=== PATIENT | female | born 1945 | race Caucasian/White ===

== ENCOUNTER 2021-08-27 18:40 | Emergency (ER) | payer MEDICARE, OTHER, SELFPAY ==
[2021-08-27 18:41] VITALS: BP 137/75; PULSE 90; RESP 22; TEMP 36.6; O2SAT 98; BMI 32.3
--- NOTE | 2021-08-27 19:08 | XR_ITS ---
PROCEDURE INFORMATION: Exam: XR Chest Exam date and time: 08/27/2021 7:08 PM Age: 76 years old Clinical indication: Patient HX: Cough, fever, quit smoking 2 years ago TECHNIQUE: Imaging protocol: XR of the chest. Views: 1 view. COMPARISON: No relevant prior studies available. FINDINGS: Lungs: Subtle interstitial haziness could reflect interstitial pneumonia. No consolidation. Pleural spaces: Unremarkable. No pleural effusion. No pneumothorax. Heart/Mediastinum: Unremarkable. No cardiomegaly. Bones/joints: Unremarkable. IMPRESSION: Subtle interstitial haziness could reflect interstitial pneumonia.
--- NOTE | 2021-08-27 19:23 | HMH.EDGENADL ---
ED Disposition Condition on Discharge: Good - Critical Care Critical Care Time: No <AmandaIshan - Last Filed: 08/27/21 19:43> <Clint Mckoy - Last Filed: 08/27/21 22:14> Clinical Impression: Bronchitis due to COVID-19 virus Disposition: Home, Self-Care Instructions: DI for COVID-19 (Suspected or Confirmed ) Additional Instructions: fluids and will arrange infusion Referrals: Libia Cabral [Primary Care Provider] - Attestation: On 08/27/21, the high probability of a clinically significant, sudden or life threatening deterioration of the following system(s) required my full and direct attention, intervention and personal management. The time I documented below is in addition to time spent performing reported procedures but includes the following listed in this critical care notation. Medical Decision Making - Medical Records Medical records reviewed: Yes: I reviewed the patient's medical records. - Bill Inquiry Pt receiving controlled substance: No - Reevaluation(s) Time: 19:43 <Ishan Patel - Last Filed: 08/27/21 19:43> - Lab Data Lab results reviewed: Yes: I reviewed the patient's lab results. Result diagrams: 08/27/21 19:39 08/27/21 19:39 - Radiology Data #1 Image(s): Chest Image Reviewed: Yes I have reviewed radiologist's interpretation Preliminary Findings: Abnormal <Clint Mckoy - Last Filed: 08/27/21 22:14> Vital Signs: 08/27/21 18:41 Temperature 98 F Temperature Source Oral Pulse Rate [Radial] 90 Respiratory Rate 22 Blood Pressure [Right Arm] 137/75 Blood Pressure Mean [Right Arm] 95 Blood Pressure Position [Right Arm] Sitting 02 Sat by Pulse Oximetry 98 Oxygen Delivery Method Room Air - Lab Data Lab Results 08/27/21 19:39: WBC 5.6, RBC 4.77, Hgb 13.4, Hct 42.0, MCV 88.1, MCH 28.1, MCHC 31.9, RDW 15.1, Plt Count 202, MPV 8.8, Neut % (Auto) 66.4, Lymph % (Auto) 26.8, [place] % (Auto) 4.8, Eos % (Auto) 1.2, Baso % (Auto) 0.8, Neut # (Auto) 3.7, Lymph # (Auto) 1.5, [place] # (Auto) 0.3, Eos # (Auto) 0.1, Baso # (Auto) 0.0 08/27/21 19:39: Sodium 137, Potassium 3.9, Chloride 107, Carbon Dioxide 23, Anion Gap 10.9, BUN 17, Creatinine 1.00, Estimated Creat Clear 70, Estimated GFR 54 L, Est GFR ( Amer) 65, Glucose 97, Calcium 8.9, Total Bilirubin 0.3, AST 32, ALT 24, Alkaline Phosphatase 48, Total Protein 7.3, Albumin 4.0, Globulin 3.3 H, Albumin/Globulin Ratio 1.2 08/27/21 20:35: SARS-CoV-2 (PCR) Detected A, Influenza A Untype (PCR) Not detected, Influenza Type B (PCR) Not detected Orders (Tests/Meds): ED MEDICATIONS Generic Name Dose Route Start Last Admin Trade Name Freq PRN Reason Stop Dose Admin Sodium Chloride 1,000 mls @ 999 mls/hr 08/27/21 19:15 08/27/21 19:43 Sod Chlor 0.9% 1000ml Bag IV 08/27/21 20:15 999 mls/hr .Q1H1M ALEXEY Administration Discontinued Medications Generic Name Dose Route Start Last Admin Trade Name Freq PRN Reason Stop Dose Admin Dexamethasone Sodium Phosphate 10 mg 08/27/21 19:08 08/27/21 19:43 Dexamethasone 4mg/Ml 5ml Mdv IV 08/27/21 19:09 10 mg ONCE ONE Administration - Reevaluation(s) Reevaluation #1: On reevaluation, patient remains in no respiratory distress. Nontoxic. No evidence of desaturation. Patient pending laboratory evaluation. Signed out to oncoming physician. (Ishan Patel) Medical Decision Narrative: 76-year-old female presenting with some cough and difficulty breathing. Patient symptoms are consistent with bronchitis secondary to Covid. Patient not having any hemodynamic instability. No hypoxia. No respiratory distress. Nontoxic. Work-up initiated. (Ishan Patel) General Adult HPI - General Mode of Arrival: Ambulatory Limitations: No Limitations Description of Symptoms (Recalled from ER Triage Doc. by RN): TO ED PER [facility]T CAR WITH C/O COUGH, SOB STATES TESTED + FOR COVID TODAY. SPOKE WITH PCP AND TOLD TO COME TO ED FOR EVAL. <Gilberto Patel
[2021-08-27 19:49] LABS: Basophils % 0.8 % (0.1-2.0); Eosinophils # 0.1 K/mm3 (0.0-0.4); Eosinophils % 1.2 % (0.1-12.0); Hemoglobin 13.4 g/dL (12.2-16.2); Lymphocytes # 1.5 K/mm3 (0.7-4.5); Lymphocytes % 26.8 % (10-50); Mean Corpuscular HGB Conc 31.9 g/dL (31.8-35.4); Mean Corpuscular Hemoglobin 28.1 pg (27.0-31.2); Mean Corpuscular Volume 88.1 fl (81-99); Mean Platelet Volume 8.8 fl (7.4-10.4); Monocytes # 0.3 K/mm3 (0.1-1.0); Monocytes % 4.8 % (1.7-9.3); Neutrophils # 3.7 K/mm3 (1.8-7.8); Neutrophils % 66.4 % (37.0-80.0); Platelet Count 202 K/mm3 (142-424); Red Blood Count 4.77 M/mm3 (4.20-5.40); Red Cell Distribution Width 15.1 % (11.5-17.5); White Blood Count 5.6 K/mm3 (4.8-10.8)
[2021-08-27 20:04] LABS: Chloride 107 mmol/L (98-107); Sodium 137 mmol/L (136-145)
[2021-08-27 20:05] LABS: Potassium 3.9 mmoL/L (3.5-5.1)
[2021-08-27 20:07] LABS: Alanine Aminotransferase 24 U/L (12-78); Alkaline Phosphatase 48 U/L (38-126); Aspartate Amino Transferase 32 U/L (14-36); Bilirubin,Total 0.3 mg/dl (0.2-1.3); Blood Urea Nitrogen 17 mg/dl (7-17); Creatinine Clearance Estimated 70 mL/min (50-200); Estimated Glomerular Filt Rate 54 ml/min (>60); GFR (African American) 65 ML/MIN (>60)
[2021-08-27 20:08] LABS: Albumin/Globulin Ratio 1.2 (1.1-1.8); Anion Gap 10.9 mEq/L (5-15); Calcium 8.9 mg/dl (8.4-10.2); Carbon Dioxide 23 mmol/L (22.0-30.0); Globulin 3.3 g/dL (1.3-3.2); Glucose 97 mg/dl (74-100); Total Protein,Serum 7.3 g/dl (6.3-8.2)
[2021-08-27 20:46] LABS: Influenza A, PCR Not Detected (NotDetected); Influenza B, PCR Not Detected (NotDetected)
[2021-08-27 21:21] LABS: Coronavirus 19, PCR Detected (NotDetected)
[2021-08-27 22:25] VITALS: BP 112/70; PULSE 73; RESP 13; TEMP 36.8; O2SAT 98
== END 2021-08-27 22:27 | disposition home or self-care (01) ==
PROVIDERS: Emergency Provider Emergency Medicine; PCP Family Medicine
DX: J20.9 Acute bronchitis, unspecified (principal); U07.1 COVID-19
CPT/HCPCS: 71045; 80053; 85025; 96365; 96375; 99283; C9803; U0003; U0005

== ENCOUNTER → 2021-09-03 14:51 | Outpatient (CLI) | payer MEDICARE, OTHER, SELFPAY | PROVIDERS: PCP Family Medicine; Visit Provider Nurse Practitioner | DX: Z20.822 Contact with and (suspected) exposure to COVID-19 (principal); U07.1 COVID-19 | CPT/HCPCS: C9803; U0003; U0005 ==

== ENCOUNTER 2021-09-13 12:18 | Emergency (ER) | payer MEDICARE, OTHER, SELFPAY ==
[2021-09-13 13:10] VITALS: BP 110/65; PULSE 97; RESP 16; TEMP 37.4; O2SAT 98; BMI 32.3
--- NOTE | 2021-09-13 13:45 | XR_ITS ---
PROCEDURE: XR CHEST 2V CLINICAL HISTORY: soa COMPARISON: CR XR CHEST PORTABLE from 08/27/2021 FINDINGS: The cardiomediastinal silhouette and pulmonary vascularity are within normal limits. Atelectatic changes are present in the right lower lobe. Minimal calcification the pleura noted in the left apex. Right hemidiaphragm is slightly elevated Bone plate is present along the proximal humerus on the right IMPRESSION: Mild right lower lobe atelectasis Dictated by: Ruben Palmer MD 09/13/2021 14:13 Ruben Palmer MD in [place] 09/13/2021 14:13
--- NOTE | 2021-09-13 13:45 | HMH.EDUTC ---
[facility] Disposition Clinical Impression: Atelectasis, right Acute bronchitis Qualifiers: Bronchitis organism: unspecified organism Qualified Code(s): J20.9 - Acute bronchitis, unspecified Disposition: Home, Self-Care Condition on Discharge: Good Instructions: How to Use an Incentive Spirometer, Acute Bronchitis, DI for Acute Bronchitis Additional Instructions: Drink plenty of fluids. Take tylenol or ibuprofen for pain or fever. Take the medications as directed. Follow up with your regular doctor. GO TO THE ER FOR ANY WORSENING SYMPTOMS The cough medication (promethazine dm) will make you drowsy, so don't drive or operate heavy machinery after taking it. Use the incentive spirometer 10 times every 2 hours while you are awake for the next 10 days. Prescriptions: Promethazine/Dextromethorphan [Promethazine-Dm Syrup] 5 ml PO Q6HP PRN #240 ml PRN Reason: Cough Transmission Status: Received by [facility] #[id number] predniSONE [Deltasone 10mg tablet] 10 mg PO BID 3 Days #6 tab Transmission Status: Received by [facility] #[id number] Cefdinir [Omnicef 300mg Capsule] 300 mg PO BID #20 cap Transmission Status: Received by [facility] #[id number] Benzonatate [Tessalon Perle 100mg Cap] 100 mg PO TIDP PRN #30 cap PRN Reason: Cough Transmission Status: Received by [facility] #[id number] Referrals: Libia Cabral [Primary Care Provider] - Time of Disposition: 14:59 Medical Decision Making - Medical Records Medical records reviewed: No: I reviewed the patient's medical records. - Bill Inquiry Pt receiving controlled substance: No Vital Signs: 09/13/21 13:10 09/13/21 14:56 Temperature 99.4 F 99.1 F Temperature Source Oral Pulse Rate 97 H Pulse Rate [Left] 97 H Respiratory Rate 16 19 Blood Pressure 110/65 Blood Pressure [Right Arm] 110/65 Blood Pressure Mean [Right Arm] 80 02 Sat by Pulse Oximetry 98 Orders (Tests/Meds): ED MEDICATIONS Discontinued Medications Generic Name Dose Route Start Last Admin Trade Name Freq PRN Reason Stop Dose Admin Ceftriaxone Sodium 1 gm 09/13/21 14:27 09/13/21 14:32 Ceftriaxone 1gm Vial IM 09/13/21 14:28 1 gm ONCE ONE Administration Lidocaine HCl 0 ml 09/13/21 14:27 09/13/21 14:32 Lidocaine 1% 5ml Pf Vial IM 09/13/21 14:28 2.5 ml ONCE ONE Administration [facility] HPI - General Stated complaint: Weakness; cough Time Seen by Provider: 09/13/21 13:45 Mode of Arrival: Ambulatory Source of Information: Patient Limitations: No Limitations Description of Symptoms (Recalled from Triage Doc. by RN): pt is covid positive. pt c/o of a cough, fatigue, weakness and dizziness. HEENT Symptoms (Recalled from RN notes): No Resp Symptoms (Recalled from RN notes): Yes (cough) Skin Symptoms (Recalled from RN notes): No MS Symptoms (Recalled from RN notes): No Functional Status (Recalled from RN notes): weakness, fatigue and dizziness - History of Present Illness Provider Complaint: She states that she has been coughing and having wheezing for the past 3 days. She had covid-19 about 3 weeks ago, but she got better from that. Then, her current symptoms started. She denies any shortness of breath. - Related Data Previous Rx's Medication Instructions Recorded Benzonatate [Tessalon Perle 100mg 100 mg PO TIDP PRN #30 cap 09/13/21 Cap] Cefdinir [Omnicef 300mg Capsule] 300 mg PO BID #20 cap 09/13/21 Promethazine/Dextromethorphan 5 ml PO Q6HP PRN #240 ml 09/13/21 [Promethazine-Dm Syrup] predniSONE [Deltasone 10mg tablet] 10 mg PO BID 3 Days #6 tab 09/13/21 Allergies Allergy/AdvReac Type Severity Reaction Status Date / Time codeine Allergy Verified 08/27/21 19:15 - Worker's Comp Is this a Worker's Comp case?: No [facility] History - Hepatitis A Screen Drug use history?: No High risk sexual behaviors?: No History of sexually transmitted infection?: No 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
[2021-09-13 14:56] VITALS: BP 110/65; PULSE 97; RESP 19; TEMP 37.3
== END 2021-09-13 15:01 | disposition home or self-care (01) ==
PROVIDERS: Emergency Provider Nurse Practitioner Family; PCP Family Medicine
DX: J98.11 Atelectasis (principal); J20.9 Acute bronchitis, unspecified
CPT/HCPCS: G0463; 71046; 96372; 99202

== ENCOUNTER 2021-10-10 09:45 | Emergency (ER) | payer MEDICARE, OTHER, SELFPAY ==
[2021-10-10 09:46] VITALS: BP 157/88; PULSE 82; RESP 18; TEMP 37.1; O2SAT 95; BMI 32.3
[2021-10-10 10:30] VITALS: BP 150/92; PULSE 72; O2SAT 97
[2021-10-10 10:50] LABS: Basophils # 0.1 K/mm3 (0-0.2); Eosinophils # 0.4 K/mm3 (0.0-0.4); Eosinophils % 4.4 % (0.1-12.0); Hematocrit 43.1 % (37.0-47.0); Hemoglobin 14.1 g/dL (12.2-16.2); Lymphocytes # 2.2 K/mm3 (0.7-4.5); Lymphocytes % 24.2 % (10-50); Mean Corpuscular HGB Conc 32.6 g/dL (31.8-35.4); Mean Corpuscular Hemoglobin 28.8 pg (27.0-31.2); Mean Corpuscular Volume 88.2 fl (81-99); Mean Platelet Volume 8.3 fl (7.4-10.4); Monocytes # 0.5 K/mm3 (0.1-1.0); Monocytes % 5.1 % (1.7-9.3); Neutrophils # 5.8 K/mm3 (1.8-7.8); Neutrophils % 65.3 % (37.0-80.0); Platelet Count 314 K/mm3 (142-424); Red Blood Count 4.89 M/mm3 (4.20-5.40); Red Cell Distribution Width 15.2 % (11.5-17.5)
[2021-10-10 10:56] LABS: Chloride 105 mmol/L (98-107)
[2021-10-10 10:57] LABS: Potassium 4.5 mmoL/L (3.5-5.1); Sodium 138 mmol/L (136-145)
[2021-10-10 10:59] LABS: Alanine Aminotransferase 21 U/L (12-78); Aspartate Amino Transferase 30 U/L (14-36); Blood Urea Nitrogen 13 mg/dl (7-17); Creatinine Clearance Estimated 70 mL/min (50-200); Estimated Glomerular Filt Rate 61 ml/min (>60); GFR (African American) 74 ML/MIN (>60)
[2021-10-10 11:00] VITALS: BP 129/78; PULSE 64
[2021-10-10 11:00] LABS: Albumin Level 4.2 g/dl (3.5-5.0); Albumin/Globulin Ratio 1.4 (1.1-1.8); Alkaline Phosphatase 51 U/L (38-126); Anion Gap 11.5 mEq/L (5-15); Bilirubin,Total 0.4 mg/dl (0.2-1.3); Calcium 9.8 mg/dl (8.4-10.2); Carbon Dioxide 26 mmol/L (22.0-30.0); Glucose 88 mg/dl (74-100); Total Protein,Serum 7.2 g/dl (6.3-8.2)
--- NOTE | 2021-10-10 11:18 | ECG_ITS ---
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
--- NOTE | 2021-10-10 11:39 | HMH.EDGENADL ---
ED Disposition Clinical Impression: Insect bites, Insect bites Disposition: Home, Self-Care Condition on Discharge: Good Instructions: DI for Skin Abscess Additional Instructions: Please follow-up with your primary care physician and [facility] outpatient for further management. Please utilize the Benadryl and hydrocortisone for symptomatic relief. Also recommend calling an owner professional engineer in regards to the insects. Please return back to the emergency department for any concerning symptoms. Prescriptions: diphenhydrAMINE HCL [Benadryl 25mg Capsule] 25 mg PO NEEDED PRN #10 cap PRN Reason: Itching Transmission Status: Received by [facility] #[id number] Hydrocortisone [Hydrocortisone 1% Cream 30gm Tube] 0 gm TP NEEDED PRN 7 Days #1 gm PRN Reason: Itching Transmission Status: Received by [facility] #[id number] Referrals: Libia Cabral [Primary Care Provider] - Time of Disposition: 11:40 - Critical Care Critical Care Time: No Attestation: On 10/10/21, the high probability of a clinically significant, sudden or life threatening deterioration of the following system(s) required my full and direct attention, intervention and personal management. The time I documented below is in addition to time spent performing reported procedures but includes the following listed in this critical care notation. Medical Decision Making - Bill Inquiry Pt receiving controlled substance: No Vital Signs: 10/10/21 09:46 10/10/21 10:30 10/10/21 11:00 Temperature 98.7 F Temperature Source Oral Pulse Rate 72 64 Pulse Rate [Right Radial] 82 Respiratory Rate 18 Blood Pressure 150/92 H 129/78 Blood Pressure [Right Arm] 157/88 H Blood Pressure Mean 123 95 Blood Pressure Mean [Right Arm] 111 Blood Pressure Source Blood Pressure Source [Right Arm] Automatic Cuff Blood Pressure Position Blood Pressure Position [Right Arm] Sitting 02 Sat by Pulse Oximetry 95 97 Oxygen Delivery Method Room Air 10/10/21 12:15 Temperature 98.3 F Temperature Source Oral Pulse Rate 80 Pulse Rate [Right Radial] Respiratory Rate 18 Blood Pressure 129/78 Blood Pressure [Right Arm] Blood Pressure Mean Blood Pressure Mean [Right Arm] Blood Pressure Source Automatic Cuff Blood Pressure Source [Right Arm] Blood Pressure Position Supine Blood Pressure Position [Right Arm] 02 Sat by Pulse Oximetry Oxygen Delivery Method Nasal Cannula - Lab Data Lab Results 10/10/21 10:26: WBC 9.0, RBC 4.89, Hgb 14.1, Hct 43.1, MCV 88.2, MCH 28.8, MCHC 32.6, RDW 15.2, Plt Count 314, MPV 8.3, Neut % (Auto) 65.3, Lymph % (Auto) 24.2, [place] % (Auto) 5.1, Eos % (Auto) 4.4, Baso % (Auto) 1.0, Neut # (Auto) 5.8, Lymph # (Auto) 2.2, [place] # (Auto) 0.5, Eos # (Auto) 0.4, Baso # (Auto) 0.1 10/10/21 10:26: Sodium 138, Potassium 4.5, Chloride 105, Carbon Dioxide 26, Anion Gap 11.5, BUN 13, Creatinine 0.90, Estimated Creat Clear 70, Estimated GFR 61, Est GFR ( Amer) 74, Glucose 88, Calcium 9.8, Total Bilirubin 0.4, AST 30, ALT 21, Alkaline Phosphatase 51, Total Protein 7.2, Albumin 4.2, Globulin 3.0, Albumin/Globulin Ratio 1.4 Result diagrams: 10/10/21 10:26 10/10/21 10:26 Medical Decision Narrative: Miss Allen is a 76 yo female w/ no significant PMH who presents with multiple pruritic insect bites. No other systemic signs of infection. Patient is afebrile and hemodynamically stable, non toxic appearing. No mucosal changes seen. Patient denies starting any new medications. Rash consistent with bug bites. Pattern distribution not typical to scabies.Of note patient is followed by Dermatology for current rash and her PCP. Basic labs are non actionable. Patient is provided a script for benadryl and hydrocortisone cream for symptomatic relief. Patient instructed to fu w/ her primary team for further management. Patient also instructed to discuss w/ an owner professional engineer regarding definitive management. General Adult HPI - Gen
[2021-10-10 12:15] VITALS: BP 129/78; PULSE 80; RESP 18; TEMP 36.8; O2SAT 95
== END 2021-10-10 12:15 | disposition home or self-care (01) ==
PROVIDERS: Emergency Provider Student in an Organized Health Care Education/Training Program; PCP Family Medicine
DX: S30.861A Insect bite (nonvenomous) of abdominal wall, initial encounter (principal); S80.862A Insect bite (nonvenomous), left lower leg, initial encounter; S80.861A Insect bite (nonvenomous), right lower leg, initial encounter; L08.9 Local infection of the skin and subcutaneous tissue, unspecified; W57.XXXA Bitten or stung by nonvenomous insect and other nonvenomous arthropods, initial encounter
CPT/HCPCS: 36415; 80053; 85025; 93005; 99282

== ENCOUNTER 2022-03-14 19:40 | Emergency (ER) | payer MEDICARE, OTHER, SELFPAY ==
[2022-03-14 19:42] VITALS: BP 165/98; PULSE 84; RESP 16; TEMP 37.3; O2SAT 99; BMI 34.8
--- NOTE | 2022-03-14 19:53 | ECG_ITS ---
APPROVED REPORT Exam: Resting ECG HR:89 bpm ECG Measurements Heart Rate 89 AXES DE 146 P -7 QRSd 86 QRS 101 QT 346 T -7 QTc 392 Conclusion SINUS RHYTHM WITH OCCASIONAL SUPRAVENTRICULAR PREMATURE COMPLEXES PATTERN CONSISTENT WITH PULMONARY DISEASE POSSIBLE RIGHT VENTRICULAR HYPERTROPHY [SOME/ALL OF: PROMINENT R IN V1, LATE TRANSITION, RAD, CHEKO, SSS] MODERATE ST DEPRESSION [0.05+ mV ST DEPRESSION] ABNORMAL QRS-T ANGLE [QRS-T AXIS DIFFERENCE > 60] ABNORMAL ECG UNCONFIRMED REPORT Electronically signed by : Nakul Thakkar MD 03/15/2022 16:20:52
--- NOTE | 2022-03-14 20:19 | XR_ITS ---
PROCEDURE INFORMATION: Exam: XR Chest Exam date and time: 03/14/2022 8:19 PM Age: 77 years old Clinical indication: Shortness of breath; Additional info: Short of air TECHNIQUE: Imaging protocol: XR of the chest. Views: 2 views. COMPARISON: CR XR CHEST 2V 09/13/2021 1:47 PM FINDINGS: Lungs: Resolved subsegmental atelectasis right mid lung since comparison. Pleural spaces: Unremarkable. No pleural effusion. No pneumothorax. Heart/Mediastinum: Unremarkable. No cardiomegaly. Bones/joints: Internal fixation right humeral head. IMPRESSION: Resolved subsegmental atelectasis right mid lung since comparison.
--- NOTE | 2022-03-14 20:20 | HMH.EDSOB ---
ED Disposition Clinical Impression: Hypothyroidism (acquired) Acute bronchitis Qualifiers: Bronchitis organism: unspecified organism Qualified Code(s): J20.9 - Acute bronchitis, unspecified Disposition: Home, Self-Care Condition on Discharge: Good Instructions: DI for Shortness of Breath Additional Instructions: see card in am for follow up Prescriptions: predniSONE [Prednisone 20mg Tab] 20 mg PO BID #10 tab Transmission Status: Pending to [facility] #[id number] Azithromycin [Zithromax 250mg tab] 250 mg PO DIRECTED #6 tab Transmission Status: Pending to [facility] #[id number] Referrals: Ann Kelly APRN [Primary Care Provider] - - Critical Care Critical Care Time: No Attestation: On 03/14/22, the high probability of a clinically significant, sudden or life threatening deterioration of the following system(s) required my full and direct attention, intervention and personal management. The time I documented below is in addition to time spent performing reported procedures but includes the following listed in this critical care notation. Medical Decision Making - Medical Records Medical records reviewed: Yes: I reviewed the patient's medical records. - Bill Inquiry Pt receiving controlled substance: No Vital Signs: 03/14/22 19:42 03/14/22 20:36 03/14/22 21:00 Temperature 99.2 F Temperature Source Oral Pulse Rate 84 80 Pulse Rate [Left] 84 Respiratory Rate 16 Blood Pressure 133/117 H 139/92 H Blood Pressure [Left Arm] 165/98 H Blood Pressure Mean 120 107 Blood Pressure Mean [Left Arm] 120 02 Sat by Pulse Oximetry 99 98 97 Oxygen Delivery Method Room Air 03/14/22 22:00 Temperature Temperature Source Pulse Rate 84 Pulse Rate [Left] Respiratory Rate Blood Pressure 163/94 H Blood Pressure [Left Arm] Blood Pressure Mean 104 Blood Pressure Mean [Left Arm] 02 Sat by Pulse Oximetry 97 Oxygen Delivery Method - Lab Data Lab results reviewed: Yes: I reviewed the patient's lab results. Lab Results 03/14/22 20:05: WBC 8.5, RBC 4.76, Hgb 13.7, Hct 42.5, MCV 89.3, MCH 28.9, MCHC 32.3, RDW 14.3, Plt Count 245, MPV 8.2, Neut % (Auto) 64.6, Lymph % (Auto) 26.4, [place] % (Auto) 4.7, Eos % (Auto) 2.8, Baso % (Auto) 1.4, Neut # (Auto) 5.5, Lymph # (Auto) 2.3, [place] # (Auto) 0.4, Eos # (Auto) 0.2, Baso # (Auto) 0.1, ESR 95 H 03/14/22 20:05: C-Reactive Protein 45.8 H 03/14/22 20:05: NT-Pro-B Natriuret Pep 61.6, TSH 14.50 H, Thyroxine (T4) 10.3 03/14/22 20:19: Sodium 136, Potassium 4.3, Chloride 102, Carbon Dioxide 28, Anion Gap 10.3, BUN 16, Creatinine 1.00, Estimated Creat Clear 74, Estimated GFR 54 L, Est GFR ( Amer) 65, Glucose 102 H, Calcium 8.7, Total Bilirubin 0.5, AST 28, ALT 24, Alkaline Phosphatase 46, Troponin I < 0.01, C-Reactive Protein 45.9 H, Total Protein 7.4, Albumin 4.3, Globulin 3.1, Albumin/Globulin Ratio 1.4, Amylase 88, Lipase 187, Procalcitonin 0.078 03/14/22 20:20: SARS-CoV-2 (PCR) Not detected, Influenza A Untype (PCR) Not detected, Influenza Type B (PCR) Not detected Result diagrams: 03/14/22 20:05 03/14/22 20:19 Orders (Tests/Meds): ED MEDICATIONS Generic Name Dose Route Start Last Admin Trade Name Freq PRN Reason Stop Dose Admin Sodium Chloride 1,000 mls @ 999 mls/hr 03/14/22 20:30 03/14/22 20:31 Sod Chlor 0.9% 1000ml Bag IV 03/14/22 21:30 999 mls/hr .Q1H1M ALEXEY Administration Discontinued Medications Generic Name Dose Route Start Last Admin Trade Name Freq PRN Reason Stop Dose Admin Iopamidol 70 ml 03/14/22 21:29 03/14/22 21:30 Iopamidol-370 (76%);100ml Bottle IV 03/14/22 21:30 70 ml ONCE ONE Administration Sodium Chloride 50 ml 03/14/22 21:29 03/14/22 21:30 0.9 % Sodium Chloride 50 Ml Vial IV 03/14/22 21:30 50 ml ONCE ONE Administration Sodium Chloride 10 ml 03/14/22 21:29 03/14/22 21:30 Sodium Chloride 0.9% 10ml Syr (Rad Only) IV 03/14/22 21:30 10 ml ONCE ONE Admi
[2022-03-14 20:36] VITALS: BP 133/117; PULSE 84; O2SAT 98
[2022-03-14 20:52] LABS: Chloride 102 mmol/L (98-107); Potassium 4.3 mmoL/L (3.5-5.1); Sodium 136 mmol/L (136-145)
[2022-03-14 20:53] LABS: Basophils # 0.1 K/mm3 (0-0.2); Basophils % 1.4 % (0.1-2.0); Eosinophils # 0.2 K/mm3 (0.0-0.4); Eosinophils % 2.8 % (0.1-12.0); Hematocrit 42.5 % (37.0-47.0); Hemoglobin 13.7 g/dL (12.2-16.2); Lymphocytes # 2.3 K/mm3 (0.7-4.5); Lymphocytes % 26.4 % (10-50); Mean Corpuscular HGB Conc 32.3 g/dL (31.8-35.4); Mean Corpuscular Hemoglobin 28.9 pg (27.0-31.2); Mean Corpuscular Volume 89.3 fl (81-99); Mean Platelet Volume 8.2 fl (7.4-10.4); Monocytes # 0.4 K/mm3 (0.1-1.0); Monocytes % 4.7 % (1.7-9.3); Neutrophils # 5.5 K/mm3 (1.8-7.8); Neutrophils % 64.6 % (37.0-80.0); Platelet Count 245 K/mm3 (142-424); Red Blood Count 4.76 M/mm3 (4.20-5.40); Red Cell Distribution Width 14.3 % (11.5-17.5); White Blood Count 8.5 K/mm3 (4.8-10.8)
[2022-03-14 20:54] LABS: Amylase 88 U/L (30-110); Blood Urea Nitrogen 16 mg/dl (7-17); Creatinine Clearance Estimated 74 mL/min (50-200); Estimated Glomerular Filt Rate 54 ml/min (>60); GFR (African American) 65 ML/MIN (>60)
[2022-03-14 20:55] LABS: Alanine Aminotransferase 24 U/L (12-78); Albumin Level 4.3 g/dl (3.5-5.0); Albumin/Globulin Ratio 1.4 (1.1-1.8); Alkaline Phosphatase 46 U/L (38-126); Anion Gap 10.3 mEq/L (5-15); Aspartate Amino Transferase 28 U/L (14-36); Bilirubin,Total 0.5 mg/dl (0.2-1.3); Calcium 8.7 mg/dl (8.4-10.2); Carbon Dioxide 28 mmol/L (22.0-30.0); Globulin 3.1 g/dL (1.3-3.2); Glucose 102 mg/dl (74-100); Lipase 187 U/L (23-300); Total Protein,Serum 7.4 g/dl (6.3-8.2)
[2022-03-14 21:00] VITALS: BP 139/92; PULSE 80; O2SAT 97
[2022-03-14 21:01] LABS: C-Reactive Protein 45.8 mg/L (0-4)
[2022-03-14 21:02] LABS: C-Reactive Protein 45.9 mg/L (0-4)
--- NOTE | 2022-03-14 21:06 | CT_ITS ---
PROCEDURE INFORMATION: Exam: CTA Chest With Contrast Exam date and time: 03/14/2022 9:24 PM Age: 77 years old Clinical indication: Sternal or substernal pain; Additional info: Chestpain TECHNIQUE: Imaging protocol: Computed tomographic angiography of the chest with contrast. 3D rendering (Not supervised by radiologist): MIP and/or 3D reconstructed images were created by the technologist. Radiation optimization: All CT scans at this facility use at least one of these dose optimization techniques: automated exposure control; mA and/or kV adjustment per patient size (includes targeted exams where dose is matched to clinical indication); or iterative reconstruction. Contrast material: ISOVUE 370; Contrast volume: 70 ml; Contrast route: INTRAVENOUS (IV); COMPARISON: CR XR CHEST 2V 03/14/2022 8:19 PM FINDINGS: Pulmonary arteries: Normal. No pulmonary emboli. Aorta: Unremarkable. No aortic aneurysm. No aortic dissection. Lungs: Unremarkable. No consolidation. No masses. Pleural spaces: Unremarkable. No pneumothorax. No pleural effusion. Heart: Severe proximal coronary artery calcifications. No cardiomegaly. No pericardial effusion. Lymph nodes: Unremarkable. No enlarged lymph nodes. Bones/joints: Unremarkable. No acute fracture. Soft tissues: Unremarkable. IMPRESSION: 1. No acute findings. 2. No CT evidence of pulmonary embolus. 3. Severe proximal coronary artery calcifications. Consider cardiology consultation.
[2022-03-14 21:15] LABS: Troponin I < 0.01 ng/ml (0.00-0.034)
[2022-03-14 21:19] LABS: Coronavirus 19, PCR Not Detected (NotDetected); Influenza A, PCR Not Detected (NotDetected); Influenza B, PCR Not Detected (NotDetected)
[2022-03-14 21:33] LABS: NT Pro Brain Natriuretic Pep. 61.6 pg/mL (0-450)
[2022-03-14 21:41] LABS: T4 (Thyroxine) 10.3 ug/dl (5.53-11.0)
[2022-03-14 21:42] LABS: Procalcitonin 0.078 ng/mL (0.0-2.0)
[2022-03-14 21:55] LABS: Erythrocyte Sedimentation Rate 95 mm/hr (0-30)
[2022-03-14 22:00] VITALS: BP 163/94; PULSE 84; O2SAT 97
[2022-03-14 23:04] VITALS: BP 139/92; PULSE 68; RESP 16; TEMP 37.2; O2SAT 98
== END 2022-03-14 23:15 | disposition home or self-care (01) ==
PROVIDERS: Emergency Provider Emergency Medicine; PCP Nurse Practitioner
DX: J20.9 Acute bronchitis, unspecified (principal); M54.2 Cervicalgia; E03.9 Hypothyroidism, unspecified; Z20.822 Contact with and (suspected) exposure to COVID-19; Z86.16 Personal history of COVID-19; Z79.52 Long term (current) use of systemic steroids; Z88.5 Allergy status to narcotic agent
CPT/HCPCS: 71046; 71275; 80053; 82150; 83690; 83880; 84145; 84436; 84443; 84484; 85025; 85651; 86140; 93005; 96361; 96365; 96374; 96375; 99285; C9803; Q9967; U0003; U0005

== ENCOUNTER 2023-06-07 16:34 | Emergency (ER) | payer MEDICARE, OTHER, SELFPAY ==
[2023-06-07 16:40] VITALS: BP 132/50; PULSE 75; RESP 20; TEMP 36.6; O2SAT 98; BMI 33.3
--- NOTE | 2023-06-07 16:46 | XR_ITS ---
PROCEDURE INFORMATION: Exam: XR Left Foot Exam date and time: 06/07/23 04:45 PM Age: 78 years old Clinical indication: Pain; Foot; Left; Additional info: Dropped wooden poultry hanger on great toe TECHNIQUE: Imaging protocol: Radiologic exam of the left foot. Views: 3 or more views. COMPARISON: No relevant prior studies available. FINDINGS: Bones/joints: Normal. Soft tissues: Normal. IMPRESSION: No acute findings.
--- NOTE | 2023-06-07 17:21 | EXP.UTC ---
Discharge Plan Prescriptions Prescriptions: No Action pramipexole 3 MG tablet extended release 24 hr 3 mg PO DAILY levothyroxine 100 MCG tablet 1 tab PO DAILY gabapentin 100 MG capsule 300 mg PO DAILY azithromycin 250 MG tablet 250 mg PO DIRECTED Qty: 6 0RF Rx Instructions: Take two (2) tablets on day #1, then one (1) tablet day #2 thru #5 prednisone 20 MG tablet 20 mg PO BID Qty: 10 0RF Referrals Follow up/Referrals: Provider,Referral, MD [Primary Care Provider] - See instructions Clinical Impressions Clinical Impression: Contusion of toe, left Instructions Patient Instructions: DI for Contusion Discharge ED Provider: Aleena ([facility])Charles [facility] [place] HPI General Stated complaint: left foot pain Mode of Arrival: Ambulatory Source of Information: Patient Limitations: No Limitations Time Seen by Provider: 06/07/23 17:21 Description of Symptoms (Recalled from Triage Doc. 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 pt states she dropped a wooden coat rod hanger and it landed on her 2nd toe causing pain Related Data Home Medications Medication Instructions Recorded Confirmed gabapentin 100 mg capsule 300 mg PO DAILY Restless leg 03/14/22 03/14/22 levothyroxine 100 mcg tablet 1 tab PO DAILY THYROID 03/14/22 03/14/22 pramipexole 3 mg tablet,extended 3 mg PO DAILY Restless leg 03/14/22 03/14/22 release 24 hr Previous Rx's Medication Instructions Recorded azithromycin 250 mg tablet 250 mg PO DIRECTED #6 tabs 03/14/22 prednisone 20 mg tablet 20 mg PO BID #10 tabs 03/14/22 Allergies Allergy/AdvReac Type Severity Reaction Status Date / Time codeine Allergy Verified 08/27/21 19:15 erythromycin base Allergy Verified 06/07/23 16:50 morphine Allergy Verified 06/07/23 16:50 Worker's Comp Is this a Worker's Comp case?: No [facility] Disclaimer: The information contained in this section may have been updated after the patient was seen, as this information can be updated by other users. Social History , ALIREZA) Smoking Status: Smoker, status unknown alcohol intake: former current occupational status: retired Travel in the last 8 weeks: None ROS Obtained: Yes All systems reviewed & no additional complaints except as documented Constitutional Constitutional: Reports system reviewed and no additional complaints, except as documented Eyes Eyes: Reports system reviewed and no additional complaints, except as documented ENT Ears, Nose, Mouth, and Throat: Reports system reviewed and no additional complaints, except as documented Cardiovascular Cardiovascular: Reports system reviewed and no additional complaints, except as documented Respiratory Respiratory: Reports system reviewed and no additional complaints, except as documented Musculoskeletal Musculoskeletal: Reports system reviewed and no additional complaints, except as documented, Reports as per HPI and Reports arthralgias Neurologic Neurologic: Reports system reviewed and no additional complaints, except as documented Endocrine Endocrine: Reports system reviewed and no additional complaints, except as documented Hematologic/Lymphatic Henatologic/Lymphatic: Reports system reviewed and no additional complaints, except as documented Physical Exam General General appearance: alert and in no apparent distress Head Head exam: atraumatic and normocephalic Eye Eye exam: Present normal appearance and PERRL ENT ENT exam: Present normal exam Respiratory Respiratory exam: Present normal lung sounds bilaterally Cardi
[2023-06-07 17:47] VITALS: BP 132/50; PULSE 75; RESP 20; TEMP 36.6; O2SAT 98
== END 2023-06-07 17:50 | disposition home or self-care (01) ==
LOC: UTC 16:47
PROVIDERS: Emergency Provider Nurse Practitioner Family
DX: S90.122A Contusion of left lesser toe(s) without damage to nail, initial encounter (principal); W20.8XXA Other cause of strike by thrown, projected or falling object, initial encounter
CPT/HCPCS: 73630; 99212; 99213; 99214; G0463

== ENCOUNTER 2023-06-28 14:31 | Emergency (ER) | payer MEDICARE, OTHER, SELFPAY ==
[2023-06-28 14:32] VITALS: BP 119/65; PULSE 84; RESP 20; TEMP 36.6; O2SAT 94; BMI 32.3
--- NOTE | 2023-06-28 14:51 | EXP.UTC ---
Discharge Plan Disposition Patient Disposition: Home, Self-Care Condition: Good Prescriptions Prescriptions: New methylprednisolone 4 mg Tablets,Dose Pack 4 mg PO DIRECTED Qty: 21 0RF No Action pramipexole 3 MG tablet extended release 24 hr 3 mg PO DAILY levothyroxine 100 MCG tablet 1 tab PO DAILY gabapentin 100 MG capsule 300 mg PO DAILY azithromycin 250 MG tablet 250 mg PO DIRECTED Qty: 6 0RF Rx Instructions: Take two (2) tablets on day #1, then one (1) tablet day #2 thru #5 prednisone 20 MG tablet 20 mg PO BID Qty: 10 0RF Referrals Follow up/Referrals: Provider,Referral, MD [Primary Care Provider] - See instructions Activity Restrictions/Add. Instructions Additional Instructions/Restrictions: Go home and rest. No heavy lifting. No twisting. Don't start the oral steroids (medrol dose pack) until tomorrow, since you had the shots in here today. Follow up with your regular doctor. GO TO THE ER FOR ANY WORSENING SYMPTOMS OR CONCERN, ESPECIALLY BOWEL OR BLADDER ISSUES, SADDLE AREA NUMBNESS, FEVER, ETC Clinical Impressions Clinical Impression: Low back pain with sciatica Instructions Patient Instructions: SHAUN Núñez for Sciatica Discharge ED Provider: Adair Cruz [facility] General Stated complaint: right hip and leg pain, no accident Time Seen by Provider: 06/28/23 14:51 History of Present Illness Provider Complaint: She states that for the past 5 days she has had low back pain that radiates down her right leg. She denies any fall or recent injury. She denies any urinary complaints. Related Data Home Medications Medication Instructions Recorded Confirmed gabapentin 100 mg capsule 300 mg PO DAILY Restless leg 03/14/22 03/14/22 levothyroxine 100 mcg tablet 1 tab PO DAILY THYROID 03/14/22 03/14/22 pramipexole 3 mg tablet,extended 3 mg PO DAILY Restless leg 03/14/22 03/14/22 release 24 hr Previous Rx's Medication Instructions Recorded azithromycin 250 mg tablet 250 mg PO DIRECTED #6 tabs 03/14/22 prednisone 20 mg tablet 20 mg PO BID #10 tabs 03/14/22 methylprednisolone 4 mg tablets in 4 mg PO DIRECTED #21 tabs 06/28/23 a dose pack Allergies Allergy/AdvReac Type Severity Reaction Status Date / Time codeine Allergy Verified 08/27/21 19:15 erythromycin base Allergy Verified 06/07/23 16:50 morphine Allergy Verified 06/07/23 16:50 PFSH PFS Disclaimer: The information contained in this section may have been updated after the patient was seen, as this information can be updated by other users. Social History Smoking Status: Smoker, status unknown alcohol intake: former current occupational status: retired Travel in the last 8 weeks: None ROS Obtained: Yes All systems reviewed & no additional complaints except as documented Constitutional Constitutional: Denies chills and Denies fever(s) Eyes Eyes: Denies eye discharge ENT Ears, Nose, Mouth, and Throat: Denies dizziness, Denies otalgia and Denies sore throat Cardiovascular Cardiovascular: Denies chest pain Respiratory Respiratory: Denies shortness of breath, Denies chest congestion, Denies cough, Denies stridor and Denies wheezing Gastrointestinal Gastrointestingal: Denies nausea or vomiting Genitourinary Female Genitourinary: Reports as per HPI Musculoskeletal Musculoskeletal: Reports as per HPI and Reports back pain Integumentary/Breasts Skin/Breast: Denies rash Neurologic Neurologic: Denies dizziness and Denies paresthesias Allergic/Immunologic Allergic/Immunologic: Denies wheezing Physical Exam General General appearance: alert and in no apparent distress Head Head exam: atraumatic, normocephalic and normal inspection Eye Eye exam: Present normal appearance, PERRL and EOMI ENT ENT exam: Present normal exam, normal oropharynx, mucous membranes moist, TM's normal bilaterally and normal
[2023-06-28 15:33] VITALS: BP 119/65; PULSE 84; RESP 20; TEMP 36.6; O2SAT 94
== END 2023-06-28 15:36 | disposition home or self-care (01) ==
PROVIDERS: Emergency Provider Nurse Practitioner Family
DX: M54.41 Lumbago with sciatica, right side (principal)
CPT/HCPCS: 96372; 99212; 99214; G0463